=== PATIENT | female | born 2000 | race African-American/Black ===

== ENCOUNTER 2020-11-22 11:26 | Emergency (ER) | payer SELFPAY ==
[~2020-11-22] VITALS: Ht 167.6 cm; Wt 82.0 kg
[2020-11-22 12:21] VITALS: BP 123/77
[2020-11-22] MEDS ORDERED: IBUP-2028 MT (14:46)
== END 2020-11-22 12:24 | disposition left against medical advice (07) ==
LOC: ER 11:26
DX: Z13.9 Encounter for screening, unspecified (principal); J45.909 Unspecified asthma, uncomplicated
CPT/HCPCS: 99283

== ENCOUNTER 2020-11-22 12:28 | Emergency (ER) | payer SELFPAY ==
[~2020-11-22] VITALS: Ht 167.6 cm; Wt 82.0 kg
[2020-11-22] MEDS ORDERED: IBUPROFEN 400MG TABLET PO ONE (13:00)
[2020-11-22] MEDS ORDERED: IBUP-2028 MT (14:46)
[2020-11-22 16:24] VITALS: BP 114/72
== END 2020-11-22 16:25 | disposition home or self-care (01) ==
LOC: ER 12:28
DX: S93.401A Sprain of unspecified ligament of right ankle, initial encounter (principal); F12.10 Cannabis abuse, uncomplicated; J45.909 Unspecified asthma, uncomplicated; W18.30XA Fall on same level, unspecified, initial encounter; Y93.89 Activity, other specified; Y92.89 Other specified places as the place of occurrence of the external cause; Y99.8 Other external cause status
CPT/HCPCS: 29515; 73610; 99284